=== PATIENT | male | born 1975 | race Hispanic/Latino ===

== ENCOUNTER 2016-10-24 16:00 | Emergency (ER) | payer OTHER ==
[~2016-10-24 16:00] MED LIST: IBUPROFEN800 M1 PO; MEDROL4 M2 PO; PERCOCET 5-3251 EACH PO; VALIUM5 M2 PO
[2016-10-24] MEDS ORDERED: ATORVASTATIN CA20 M1 PO (18:17)
[2016-10-24] MEDS ORDERED: LISINOPRIL5 M1 PO (18:17)
[2016-10-24] MEDS ORDERED: METFORMIN HCL500 M3 PO (18:17)
--- NOTE | 2016-10-24 18:25 | ED NECK/BACK PAIN COMPLAINT ---
History of Present Illness General Chief Complaint: Low Back Pain/Injury Stated Complaint: STILL HAVING BACK PAIN DUE TO PREV INCIDENT WORK Source: patient, old records Exam Limitations: no limitations Vital Signs & Intake/Output Vital Signs & Intake/Output Vital Signs Date Time Temp Pulse Resp B/P Pulse O2 O2 Flow FiO2 Ox Delivery Rate 10/24 1844 98.1 60 20 140/80 98 Room Air 10/24 1609 98.0 58 22 138/80 98 Allergies Coded Allergies: NO KNOWN ALLERGIES (03/01/16) Reconcile Medications Atorvastatin Calcium 20 MG TABLET 1 TAB PO DAILY CHOLESTEROL (Reported) Cyclobenzaprine HCl 5 MG TABLET 1 TAB PO TIDPRN PRN pain Ibuprofen 800 MG TABLET 1 TAB PO TID pain Lisinopril 5 MG TABLET 1 TAB PO DAILY BP (Reported) Metformin HCl 500 MG TABLET 1 TAB PO DAILY DM (Reported) Oxycodone HCl/Acetaminophen (Percocet 5-325 MG Tablet) 5 MG-325 MG TABLET 1 TAB PO BID pain Triage Note: PER PT PREVIOUS BACK INJURY AND PAIN INTENSE THIS AM. GOING ON VACATION IN AM NEED TO HAVE SOMETHING FOR PAIN Triage Nurses Notes Reviewed? yes Onset: Abrupt Duration: day(s): (1), constant Timing: recent history Quality/Severity: moderate, severe Location: paraspinous muscles Radiation: buttocks, upper legs Method of Injury: unknown Loss of Consciousness: no loss of consciousness Modifying Factors: movement, pain medication, rest Associated Symptoms: tingling in legs/feet HPI: -year-old male with history of hypertension chronic back pain requiring surgery on his lumbar spine in the past presents complaining of a one-day history of right-sided lower back pain 9 out of 10 that came on when he awoke this morning. The patient denies any known specific injury or trauma however states that this feels similar to his exacerbations in the past. He attempted using over-the- counter medications without improvement. He denies any urinary or bowel incontinence no dysuria urgency frequency hematuria. He denies abdominal pain. The pain is radiating down his right leg to his knee. Patient states that he is going way to [place] tomorrow and is requesting pain medication for the trip or worse with change of position better at rest (KAI JAMES,INDIA) Past History Travel History Traveled to [place] past 21 day No Medical History Any Pertinent Medical History? see below for history Neurological: NONE EENT: NONE Cardiovascular: HTN, CHOL Musculoskeletal: chronic low back pain Endocrine: NIDDM Surgical History Surgical History: vertebral removal 2008 Psychosocial History What is your primary language Dutch Tobacco Use: Never used Family History Hx Contributory? No (INDIA BURT) Review of Systems Review of Systems Constitutional: Reports: see HPI. All Other Systems: Reviewed and Negative Comments Review of systems: See HPI, All other systems negative. Constitutional, no chills no fever, no malaise HEENT: No visual changes no sore throat no congestion Cardiovascular: No chest pain , no palpitation Skin, no rashes, no change in skin Respiratory: No dyspnea no cough no sputum GI: No nausea no vomiting, no diarrhea : No dysuria No hematuria, no frequency, Muscle skeletal: No joint pain, no joint swelling, back pain, no neck pain, Neurologic: No numbness no headache Psych: No stress Heme/endocrine: No bruising no bleeding Immunology: No lymphadenopathy (INDIA BURT) Physical Exam Physical Exam General Appearance: well developed/nourished, no apparent distress, alert Neck: normal inspection Comments: Well-developed well-nourished patient in no apparent distress. HEENT: Atraumatic, extraocular motion intact Neck: Supple, FROM, no lymphadenopathy Back: FROM, right-sided paralumbar muscle tenderness palpation on midline tenderness Cardiovascular: Regular rate and rhythms no murmurs rubs or gallops, Respiratory: No respiratory distress. Patient speaking in full complete sentences. Breath sounds clear to auscultation bilaterally: NO W/R/R Abdomen: Soft nontender Extremities: full range of motion bilateral 5 out of 5 strength in bilateral lower extremities, positive straight leg raise to bilateral lower extremity Neuro: Alert and oriented x3 Skin: Warm & dry;No appreciable rash on exposed skin Psych: Mood affect normal, normal memory normal judgment. (INDIA BURT) Progress Differential Diagnosis: herniated disc, myofascial strain, pyelo/UTI, sciatica, spinal cord inj, T/L spine injury, ureterolithiasis Plan of Care: Patient clinically looks well. No urinary bowel dysfunction. No numbness in the genital area. Strength intact. Gross sensation intact. Patient resting comfortably and in no apparent distress. Pain is worse with range of motion. Pain is reproducible IN back with no bruising or ecchymosis noted. . Patient is to follow-up with primary care doctor. May need MRI of the lower back at some point time. No concerns for cauda equina at this point time. I considered this diagnosis but patient does not have any symptoms consistent with cauda equina. Patient has no secondary causes of back pain. No cardiac, pulmonary, or abdominal complaints. No abdominal pain on exam. Cardiac pulmonary exam within normal limits. No rashes, afebrile, denies recent weight loss, dizziness, lightheadedness I had an extensive conversation regarding need for close follow up with their primary care physician this week as well as return precautions. I answered all of their questions, they feel comfortable with the plan and follow-up care. I discussed the medications that they will receive with the patient. I gave them signs and symptoms that could indicate an adverse reaction. I have advised them to limit their activities until they can see how they respond to the medication. (INDIA BURT) Departure Departure Time of Disposition: 1835 Disposition: HOME OR SELF CARE Condition: Stable Clinical Impression Primary Impression: Lumbar radiculopathy Referrals: HUSSAIN CHRISTIAN,NADNIE ROJAS (PCP/Family) Additional Instructions: percocet, flexeril as directed- use caution this is a narcotic and highly addictive- no driving or drinking alcohol wihle taking. ibuprofen 800mg every 8 hours. interchance ice and heat. follow up with dr mcclellan when you return home. return with any concerns. prescriptions at [facility] Departure Forms: Customer Survey General Discharge Information Prescriptions: Current Visit Scripts Oxycodone HCl/Acetaminophen (Percocet 5-325 MG Tablet) 1 TAB PO BID #10 TAB Cyclobenzaprine HCl 1 TAB PO TIDPRN PRN pain #12 TAB Ibuprofen 1 TAB PO TID #30 TAB (INDIA BURT) PA/BUSINESS SERVICES INTERN Co-Sign Statement Statement: ED Attending supervision documentation- [] I saw and evaluated the patient. I have also reviewed all the pertinent lab results and diagnostic results. I agree with the findings and the plan of care as documented in the PA's/BUSINESS SERVICES INTERN's documentation. [X] I have reviewed the ED Record and agree with the PA's/BUSINESS SERVICES INTERN's documentation. [] Additions or exceptions (if any) to the PAs/BUSINESS SERVICES INTERN's note and plan are summarized below: [] (CARLOTTA RAMIREZ DO
[2016-10-24] MEDS ORDERED: CYCLOBENZAPRINE5 M2 PO (18:39)
[2016-10-24] MEDS ORDERED: IBUPROFEN800 M1 PO (18:39)
[2016-10-24] MEDS ORDERED: PERCOCET 5-3251 EACH PO (18:39)
[2016-10-24 18:44] VITALS: BP 140/80
== END 2016-10-24 18:45 ==
LOC: ERH 16:00
DX: M54.16 Radiculopathy, lumbar region (principal)